=== PATIENT | male | born 1995 | race Caucasian/White ===

== ENCOUNTER 2017-10-05 01:42 | Emergency (ER) | payer SELFPAY ==
[2017-10-05 01:42] VITALS: BMI 28.2
[2017-10-05 03:22] VITALS: BP 113/70; PULSE 72; RESP 20; TEMP 98.5; O2SAT 99
--- NOTE | 2017-10-05 03:40 | C.PDOC ---
History Of Present Illness 22 years old male presents to ED for evaluation after he felt a "pop" in his knee while running during playing soccer. Patient states he felt no pain at the time but later on experienced pain on ambulation. Denies any other physical complaints. Time Seen by Provider: 10/05/17 02:25 Chief Complaint (Nursing): Lower Extremity Problem/Injury History Per: Patient History/Exam Limitations: no limitations Onset/Duration Of Symptoms: Hrs Current Symptoms Are (Timing): Still Present Pain Scale Rating Of: 4 Recent travel outside of the [place]: No - Knee Alleviating Factor(s): Ice Therapy, OTC Pain Medication (advil) Past Medical History Reviewed: Historical Data, Nursing Documentation, Vital Signs Vital Signs: Last Vital Signs Temp 98.5 F 10/05/17 03:21 Pulse 72 10/05/17 03:21 Resp 20 10/05/17 03:21 BP 113/70 10/05/17 03:21 Pulse Ox 99 10/05/17 05:35 - Medical History PMH: Asthma Surgical History: No Surg Hx Family History: States: Unknown Family Hx - Social History Hx Tobacco Use: No Hx Alcohol Use: Yes Hx Substance Use: No - Immunization History Hx Tetanus Toxoid Vaccination: No Hx Influenza Vaccination: No Hx Pneumococcal Vaccination: No Review Of Systems Constitutional: Negative for: Fever, Chills Gastrointestinal: Negative for: Nausea, Vomiting, Diarrhea Musculoskeletal: Positive for: Other (Left knee pain) Skin: Negative for: Rash Neurological: Negative for: Weakness, Numbness Physical Exam - Physical Exam Appears: Non-toxic, No Acute Distress Skin: Warm, Dry Head: Atraumatic, Normacephalic Eye(s): bilateral: Normal Inspection Extremity: Normal ROM, Tenderness (medial aspect of left knee), No Deformity, No Swelling Extremity: Bilateral: Normal Color And Temperature, Normal ROM Pulses: Left Dorsalis Pedis: Normal, Right Dorsalis Pedis: Normal Neurological/Psych: Oriented x3, Normal Speech, Normal Cognition ED Course And Treatment O2 Sat by Pulse Oximetry: 99 (RA) Pulse Ox Interpretation: Normal - Other Rad Lt Knee X-Ray X-Ray: Interpreted by Me, Viewed By Me Interpretation: No Fracture. No dislocation. Progress Note: Ordered Knee X-Ray. Patient administered knee brace and is ambulatory home. Disposition Counseled Patient/Family Regarding: Diagnosis, Need For Followup, Rx Given - Disposition Disposition: HOME/ ROUTINE Disposition Time: 03:35 Condition: STABLE Additional Instructions: Please follow up with PMD fpr ortho referral if needed Take motrin as meds Return to ER if worse Instructions: Knee Sprain (DC) Forms: [facility] ([place]) - Clinical Impression Clinical Impression: Knee sprain - PA / CHEMICAL PUMPER / Resident Statement MD/DO has reviewed & agrees with the documentation as recorded. - Scribe Statement The provider has reviewed the documentation as recorded by the Scribholli Murillo All medical record entries made by the Ricardoibholli were at my direction and personally dictated by me. I have reviewed the chart and agree that the record accurately reflects my personal performance of the history, physical exam, medical decision making, and the department course for this patient. I have also personally directed, reviewed, and agree with the discharge instructions and disposition.
--- NOTE | 2017-10-05 12:32 | RAD ---
PROCEDURE: Left Knee Radiographs. HISTORY: Pain. COMPARISON: None. FINDINGS: BONES: Normal. No fracture. JOINTS: Normal. No osteoarthritis. JOINT EFFUSION: None. OTHER FINDINGS: None. IMPRESSION: Normal radiographs of the left knee.
== END 2017-10-05 04:02 | disposition home or self-care (01) ==
LOC: C.ER 01:42
DX: S83.92XA Sprain of unspecified site of left knee, initial encounter (principal); X50.0XXA Overexertion from strenuous movement or load, initial encounter; Y93.66 Activity, soccer; Y92.39 Other specified sports and athletic area as the place of occurrence of the external cause